=== PATIENT | female | born 1960 | race Caucasian/White ===

== ENCOUNTER 2016-04-29 13:36 | Emergency (ER) | payer OTHER ==
[~2016-04-29] VITALS: Ht 152.4 cm; Wt 45.5 kg
[2016-04-29 13:39] VITALS: Ht 152.4 cm; Wt 45.5 kg
--- NOTE | 2016-04-29 14:19 | ERD ---
ER Documentation Chief Complaint Date/Time DATE: 04/29/16 TIME: 14:15 Chief Complaint SENT BY PMD FOR EVAL ON RT SIDE NECK MASS X 3 DAYS HPI This is a 56-year-old female who presents to the emergency department today for a mass on the right side of her neck for the past 3-4 days. Patient states that she try to call her primary care doctor but was unable to be seen. States she went to urgent care and was sent here for further evaluation. States that she had her regular physical exam last week and had laboratory work this morning at that appointment was already set up. Denies any upper respiratory infection, sore throat, weakness, fevers or chills. ROS All systems reviewed and are negative except as per history of present illness. Medications Home Meds Active Scripts Ibuprofen* (Motrin*) 600 Mg Tab, 600 MG PO Q6, #30 TAB Prov:BELL CHAVEZ PA-C 04/29/16 Hydrocodone/Acetaminophen (Rowe 5-325 Tablet) 1 Each Tablet, 1 TAB PO Q6H Y for PAIN, #12 TAB Prov:BELL CHAVEZ PA-C 04/29/16 Physical Exam Vitals Vital Signs Date Time Temp Pulse Resp B/P Pulse Ox O2 Delivery O2 Flow Rate FiO2 04/29/16 13:39 99.3 108 16 152/85 98 Physical Exam Const: No acute distress Head: Atraumatic Eyes: Normal Conjunctiva ENT: Normal External Ears, Nose and Mouth. Neck: Full range of motion..~ No meningismus. No evidence of lymph node enlargement. 5-7 cm mass supraclavicular region Resp: Clear to auscultation bilaterally Cardio: Regular rate and rhythm, no murmurs Abd: Soft, non tender, non distended. Normal bowel sounds Skin: 5-7 cm mass right side of the supraclavicular region that is firm with no erythema or warmth. No purulent drainage. Back: No midline or flank tenderness Ext: No cyanosis, or edema Neur: Awake and alert Psych: Normal Mood and Affect Result Diagram: 04/29/16 1525 04/29/16 1550 Results 24 hrs Laboratory Tests Test 04/29/16 15:00 04/29/16 15:25 04/29/16 15:50 Lactate Dehydrogenase 534IU/L Basophils # 0.110^3/ul Basophils % 0.4% Eosinophils # 0.110^3/ul Eosinophils % 0.9% Hematocrit 41.0% Hemoglobin 13.7g/dl Lymphocytes # 1.810^3/ul Lymphocytes % 11.8% Mean Corpuscular Hemoglobin 31.5pg Mean Corpuscular Hemoglobin Concent 33.4g/dl Mean Corpuscular Volume 94.3fl Mean Platelet Volume 10.3fl Monocytes # 1.310^3/ul Monocytes % 8.8% Neutrophils # 11.410^3/ul Neutrophils % 76.9% Nucleated Red Blood Cells # 0.010^3/ul Nucleated Red Blood Cells % 0.0/100WBC Platelet Count 84367^3/UL Red Blood Count 4.3510^6/ul Red Cell Distribution Width 12.6% White Blood Count 14.810^3/ul Alanine Aminotransferase (ALT/SGPT) 96IU/L Albumin 4.4g/dl Albumin/Globulin Ratio 1.18 Alkaline Phosphatase 201IU/L Anion Gap 21 Aspartate Amino Transf (AST/SGOT) 46IU/L Blood Urea Nitrogen 13mg/dl Calcium Level 9.4mg/dl Carbon Dioxide Level 25mmol/L Chloride Level 100mmol/L Creatinine 0.55mg/dl Direct Bilirubin 0.00mg/dl Globulin 3.70g/dl Glucose Level 99mg/dl Indirect Bilirubin 0.4mg/dl Potassium Level 4.1mmol/L Sodium Level 142mmol/L Total Bilirubin 0.4mg/dl Total Protein 8.1g/dl DIAGNOSTIC IMAGING REPORT Patient: ANTONIETTA QUICK : 1960 Age: 56 Sex: F [id number] DOS: 04/29/16 0000 Ordering MD: BELL CHAVEZ PA-C Location: [facility] Room/Bed: PROCEDURE: Ultrasound of the right supraclavicular region. CLINICAL INDICATION: Palpable lesion in the right supraclavicular region. TECHNIQUE: High-resolution sonography of the right supraclavicular region at the site of the palpable lesion was performed in the axial and sagittal planes. COMPARISON: None FINDINGS: There is no fluid collection. Two lymph nodes are present measuring 0.7 x 0.5 x 0.6 cm and 0.7 x 0.3 x 0.5 cm. There is no other cystic or solid mass. IMPRESSION: 1. Benign-appearing lymph nodes in the right supraclavicular region. 2. No other abnormality at this site. 3. Any further management regarding the palpable lesion should be based on clinical grounds. RPTAT: QQ .Phillip Llanes MD, MD Date Time Electronically viewed and signed by .Phillip Llanes MD, MD on 04/29/2016 15:40 .R/ CC: BELL CHAVEZ PA-C DIAGNOSTIC IMAGING REPORT Patient: ANTONIETTA QUICK : 1960 Age: 56 Sex: F MR #: [id number] DOS: 04/29/16 0000 Ordering MD: BELL CHAVEZ PA-C Location: [facility] Room/Bed: PROCEDURE: XR Chest. CLINICAL INDICATION: Shortness of breath. Neck mass. TECHNIQUE: Single frontal view. COMPARISON: None. FINDINGS: The lungs are clear. The heart size is normal. There is no pleural effusion. There is no pneumothorax. IMPRESSION: 1. Normal chest radiograph. RPTAT: QQ .Phillip Llanes MD, MD Date Time Electronically viewed and signed by .Phillip Llanes MD, MD on 04/29/2016 15:36 .R/ CC: BELL CHAVEZ PA-C Procedures/[facility] This 56-year-old female who presents to the emergency department today for further evaluation of a mass on the right side of her neck for the past 3-4 days. Patient was sent here by Ricardo Helton PA-C at a local clinic. on physical exam patient does not have any tender cervical lymph node however she does have an approximate 5-7 cm mass in the supraclavicular region that is very painful and tender to the touch. There is no erythema or warmth and no purulent drainage. I did obtain a soft tissue ultrasound to further evaluate the area as well as laboratory work and a chest x-ray per the recommendation of Dr. Burrell Laboratory work shows an elevated white blood cell count of 14.8. She is not anemic. Platelets are within normal limits. Neutrophils are are mildly elevated. Lymphocytes are within normal limits. Electrolytes are within normal limits. ALT is mildly elevated. Lactate dehydrogenase is within normal limits. Haptoglobin is pending and will be resulted in the next day or 2. I have explained this to the patient. Chest x-ray is normal. There is no pleural effusion, pneumothorax. Low suspicion for PE, abscess, pleural effusion, pneumothorax Soft tissue ultrasound shows a benign-appearing lymph nodes in the right supraclavicular region. There are 2 lymph nodes present measuring 0.7 x 0.5 x 0.6 cm and 0.7 x 0.3 and 0.5 cm. There is no other cystic or solid mass. I discussed the laboratory findings and imaging with Dr. Burrell. Patient symptoms at this time was consistent with lymphadenopathy of uncertain etiology. I have explained this to the patient. I have explained to her that she may require a biopsy in the future however she should follow-up with her primary care physician. Patient does have good follow-up and will make an appointment next week. Patient was given a prescription for Rowe and Motrin for pain At this time the patient is stable for discharge and outpatient management. Patient should follow up with their PCP in the next 1-2 days. They may return to the emergency department sooner for any persistent or worsening of symptoms. Patient understood and agreed with the plan. Departure Diagnosis: Primary Impression: Lymphadenopathy Condition: BELL Martino PA-C Apr 29, 2016 14:19
[2016-04-29 15:28] LABS: ADD SCAN DIFF NO
[2016-04-29 15:30] LABS: BASOPHIL # 0.1 10^3/ul (0.0-0.1); BASOPHILS % 0.4 % (0.0-2.0); EOSINOPHILS # 0.1 10^3/ul (0.0-0.5); EOSINOPHILS % 0.9 % (0.0-7.0); HEMOGLOBIN 13.7 g/dl (12.0-16.0); LYMPHOCYTES # 1.8 10^3/ul (0.8-2.9); LYMPHOCYTES % 11.8 % (15.0-51.0); MEAN CORPUSCULAR HEMOGLOBIN 31.5 pg (29.0-33.0); MEAN CORPUSCULAR HGB CONC 33.4 g/dl (32.0-37.0); MEAN CORPUSCULAR VOLUME 94.3 fl (82.0-101.0); MEAN PLATELET VOLUME 10.3 fl (7.4-10.4); MONOCYTE # 1.3 10^3/ul (0.3-0.9); MONOCYTES % 8.8 % (0.0-11.0); NEUTROPHIL # 11.4 10^3/ul (1.6-7.5); NEUTROPHILS % 76.9 % (39.0-77.0); PLATELET COUNT 260 10^3/UL (140-415); RED BLOOD COUNT 4.35 10^6/ul (4.20-5.40); RED CELL DISTRIBUTION WIDTH 12.6 % (11.5-14.5); WHITE BLOOD COUNT 14.8 10^3/ul (4.8-10.8)
--- NOTE | 2016-04-29 15:37 | RADRPT ---
PROCEDURE: XR Chest. CLINICAL INDICATION: Shortness of breath. Neck mass. TECHNIQUE: Single frontal view. COMPARISON: None. FINDINGS: The lungs are clear. The heart size is normal. There is no pleural effusion. There is no pneumothorax. IMPRESSION: 1. Normal chest radiograph. RPTAT: QQ .Phillip Llanes MD, MD Date Time Electronically viewed and signed by .Phillip Llanes MD, MD on 04/29/2016 15:36 .R/
--- NOTE | 2016-04-29 15:40 | RADRPT ---
PROCEDURE: Ultrasound of the right supraclavicular region. CLINICAL INDICATION: Palpable lesion in the right supraclavicular region. TECHNIQUE: High-resolution sonography of the right supraclavicular region at the site of the palpa ble lesion was performed in the axial and sagittal planes. COMPARISON: None FINDINGS: There is no fluid collection. Two lymph nodes are present measuring 0.7 x 0.5 x 0.6 cm and 0.7 x 0. 3 x 0.5 cm. There is no other cystic or solid mass. IMPRESSION: 1. Benign-appearing lymph nodes in the right supraclavicular region. 2. No other abnormality at this site. 3. Any further management regarding the palpable lesion should be based on clinical grounds. RPTAT: QQ .Phillip Llanes MD, Date Time Electronically viewed and signed by .Phillip Llanes MD, on 04/29/2016 15:40 .R/
[2016-04-29 16:26] LABS: ALBUMIN 4.4 g/dl (3.3-4.9)
[2016-04-29 16:27] LABS: POTASSIUM 4.1 mmol/L (3.5-5.1)
[2016-04-29 16:29] LABS: ALBUMIN/GLOBULIN RATIO 1.18; BILIRUBIN,INDIRECT 0.4 mg/dl (0-1.1); BILIRUBIN,TOTAL 0.4 mg/dl (0.2-1.3); CREATININE 0.55 mg/dl (0.44-1.00); TOTAL PROTEIN 8.1 g/dl (6.1-8.1)
[2016-04-29 16:30] LABS: CALCIUM 9.4 mg/dl (8.4-10.2)
[2016-04-29] MEDS ORDERED: IBUP-1542 PO (17:32)
[2016-04-29] MEDS ORDERED: HYDR-906 PO (17:32)
== END 2016-04-29 17:46 | disposition home or self-care (01) ==
LOC: FTE 13:36
DX: R59.1 Generalized enlarged lymph nodes (principal)
CPT/HCPCS: 71010; 76536; 80053; 83010; 83615; 85025